=== PATIENT | male | born 2000 | race Caucasian/White ===

== ENCOUNTER 2022-07-28 16:42 | Emergency (ER) | payer OTHER ==
[2022-07-28 16:51] VITALS: BP 111/71; PULSE 76; RESP 16; TEMP 97.9
[2022-07-28] MEDS ORDERED: diphenhydrAMINE 50 MG CAP PO STA (17:13)
--- NOTE | 2022-07-28 17:14 | ED ---
Skin/Abscess/FB HPI - General Chief complaint: Skin/Abscess/Foreign Body Stated complaint: spots on body Time Seen by Provider: 07/28/22 16:53 Source: patient, RN notes reviewed Mode of arrival: ambulatory Limitations: no limitations - History of Present Illness Initial comments: Rzdzjvhd-[id number]-hif male presents emergency Department chief complaint of a rash. Patient states that he noticed on his torso primary today. Patient states he just feels off. He states it is slightly itchy. Denies any new products denies any difficulty swallowing or breathing. Patient is torso in groin region. Patient states that he has no other associated complaints - Related Data Allergies Allergy/AdvReac Type Severity Reaction Status Date / Time No Known Allergies Allergy Verified 07/28/22 16:51 Review of Systems ROS Statement: Those systems with pertinent positive or pertinent negative responses have been documented in the HPI. ROS Other: All systems not noted in ROS Statement are negative. Past Medical History Past Medical History: No Reported History History of Any Multi-Drug Resistant Organisms: None Reported Past Surgical History: No Surgical Hx Reported Past Psychological History: No Psychological Hx Reported Smoking Status: Never smoker Past Alcohol Use History: Occasional Past Drug Use History: None Reported General Exam Limitations: no limitations General appearance: alert, in no apparent distress Head exam: Present: atraumatic, normocephalic, normal inspection Eye exam: Present: normal appearance, PERRL, EOMI. Absent: scleral icterus, conjunctival injection, periorbital swelling ENT exam: Present: normal exam, normal oropharynx, mucous membranes moist Neck exam: Present: normal inspection, full ROM. Absent: tenderness, meningismus, lymphadenopathy Respiratory exam: Present: normal lung sounds bilaterally. Absent: respiratory distress, wheezes, rales, rhonchi, stridor Cardiovascular Exam: Present: regular rate, normal rhythm, normal heart sounds. Absent: systolic murmur, diastolic murmur, rubs, gallop, clicks Neurological exam: Present: alert, oriented X3 Skin exam: Present: warm, dry, intact, normal color, rash (Various in size slightly raised salmon-colored she can discolor rash or so.) Course Vital Signs 07/28/22 16:47 Temperature 97.9 F Pulse Rate 76 Respiratory 16 Rate Blood Pressure 111/71 O2 Sat by Pulse 99 Oximetry Medical Decision Making - Medical Decision Making Was pt. sent in by a medical professional or institution (ZAK Faust, ANIMAL ASSISTED THERAPIST, urgent care, hospital, or fci...) When possible be specific @ -No Did you speak to anyone other than the patient for history (EMS, parent, family, police, friend...)? What history was obtained from this source @ -No Did you review nursing and triage notes (agree or disagree)? Why? @ -I reviewed and agree with nursing and triage notes Were old charts reviewed (outside hosp., previous admission, EMS record, old EKG, old radiological studies, urgent care reports/EKG's, fci records)? Report findings @ -No old charts were reviewed Differential Diagnosis (chest pain, altered mental status, abdominal pain women, abdominal pain men, vaginal bleeding, weakness, fever, dyspnea, syncope, headache, dizziness, GI bleed, back pain, seizure, CVA, palpatations, mental health)? @ -Urticaria, pityriasis, tinea versicolor, cellulitis, contact dermatitis, this was not conclusive EKG interpreted by me (3pts min.). @ -None X-rays interpreted by me (1pt min.). @ -None done CT interpreted by me (1pt min.). @ -None done U/S interpreted by me (1pt. min.). @ -None done What testing was considered but not performed or refused? (CT, X-rays, U/S, labs)? Why? @ -None What meds were considered but not given or refused? Why? @ -None Did you discuss the management of the patient with other professionals (professionals i.e. ZAK Faust, ANIMAL ASSISTED THERAPIST, lab, RT, psych nurse, social service coordinator, softball player, teacher, investment officer, case maker)? Give summary @ -No Was smoking cessation discussed for >3mins.? @ -No Was critical care preformed (if so, how long)? @ -No Were there social determinants of health that impacted care today? How? (Homelessness, low income, unemployed, alcoholism, drug addiction, transportation, low edu. Level, literacy, decrease access to med. care, [facility], rehab)? @ -No Was there de-escalation of care discussed even if they declined (Discuss DNR or withdrawal of care, Hospice)? DNR status @ -No What co-morbidities impacted this encounter? (DM, HTN, Smoking, COPD, CAD, Cancer, CVA, ARF, Chemo, Hep., AIDS, mental health diagnosis, sleep apnea, morbid obesity)? @ -None Was patient admitted / discharged? Hospital course, mention meds given and route, prescriptions, significant lab abnormalities, going to OR and other pertinent info. @ -Discharged home with advice to take antihistamines and have close follow-up. Undiagnosed new problem with uncertain prognosis? @ -No Drug Therapy requiring intensive monitoring for toxicity (Heparin, Nitro, Insulin, Cardizem)? @ -No Were any procedures done? @ -No Diagnosis/symptom? @ -Pityriasis rosea Acute, or Chronic, or Acute on Chronic? @ -Acute Uncomplicated (without systemic symptoms) or Complicated (systemic symptoms)? @ -unComplicated Side effects of treatment? @ -No Exacerbation, Progression, or Severe Exacerbation? @ -No Poses a threat to life or bodily function? How? (Chest pain, USA, MD, pneumonia, PE, COPD, DKA, ARF, appy, cholecystitis, CVA, Diverticulitis, Homicidal, Suicidal, threat to staff... and all critical care pts) @ -No Disposition Clinical Impression: Pityriasis rosea Disposition: HOME SELF-CARE Condition: Stable Instructions (If sedation given, give patient instructions): Aguilaryrjose elias bermudez (ED) Additional Instructions: Please return to the Emergency Department if symptoms worsen or any other concerns. Is patient prescribed a controlled substance at d/c from ED?: No Referrals: Odessa Martinez MD [Primary Care Provider] - 1-2 days Time of Disposition: 17:13
== END 2022-07-28 17:43 | disposition home or self-care (01) ==
LOC: EC 16:42
DX: L42 Pityriasis rosea (principal)
CPT/HCPCS: 99282

== ENCOUNTER 2022-11-08 22:19 | Emergency (ER) | payer OTHER ==
--- NOTE | 2022-11-08 23:07 | ED ---
Skin/Abscess/FB HPI - General Chief complaint: Skin/Abscess/Foreign Body Stated complaint: RASH Time Seen by Provider: 11/08/22 22:55 Source: patient, RN notes reviewed Mode of arrival: ambulatory Limitations: no limitations - History of Present Illness Initial comments: This is a 22-year-old male who presents to the emergency department for a rash. States that it is on the right side of his body and going up from the torso to the upper arm. This started back in July and he was evaluated here for the same thing, but states that the rash seems to be spreading. This started out as red and has started to turn brown. This is not significantly itchy, states that it is just uncomfortable. He has not been taking anything to treat his symptoms and has not followed up with any specialists at this point. Denies any fevers, chills, sore throat, cough, dyspnea, chest pain, palpitations, abdominal pain, nausea, vomiting, diarrhea, back pain, or headaches. MD complaint: rash - Related Data Allergies Allergy/AdvReac Type Severity Reaction Status Date / Time No Known Allergies Allergy Verified 07/28/22 16:51 Review of Systems ROS Statement: Those systems with pertinent positive or pertinent negative responses have been documented in the HPI. ROS Other: All systems not noted in ROS Statement are negative. Past Medical History Past Medical History: No Reported History History of Any Multi-Drug Resistant Organisms: None Reported Past Surgical History: No Surgical Hx Reported Past Psychological History: No Psychological Hx Reported Smoking Status: Never smoker Past Alcohol Use History: Occasional Past Drug Use History: None Reported General Exam Limitations: no limitations General appearance: alert, in no apparent distress Course Vital Signs 11/08/22 11/08/22 22:25 23:34 Temperature 97.9 F 98.0 F Pulse Rate 77 72 Respiratory 18 16 Rate Blood Pressure 108/65 112/68 O2 Sat by Pulse 97 98 Oximetry Medical Decision Making - Medical Decision Making This is a 22-year-old male who presents to the emergency department for a rash. Was pt. sent in by a medical professional or institution? @ -No Did you speak to anyone other than the patient for history? @ -No Did you review nursing and triage notes? @ -Yes, and I agree, it is accurate with regards to the patient's symptoms. Were old charts reviewed? @ -No Differential Diagnosis? @ -Differential Rash: Roseola, measles, Lyme disease, erythema multiforme, cellulitis, toxic shock syndrome, Pa Cj syndrome, Kawasaki disease, ivet mountain spotted fever, contact dermatitis, allergic dermatitis, measles, mumps, rubella, varicella, meningococcal disease, drug reaction, coxsackievirus, This is not meant to be an all-inclusive list. EKG interpreted by me (3pts min.)? @ -Not obtained X-rays interpreted by me (1pt min.)? @ -Not obtained CT interpreted by me (1pt min.)? @ -Not obtained U/S interpreted by me (1pt. min.)? @ -Not obtained What testing was considered but not performed? (CT, X-rays, U/S, labs)? Why? @ -None What meds were considered but not given? Why? @ -None Did you discuss the management of the patient with other professionals? @ -No Did you reconcile home meds? @ -No Was smoking cessation discussed for >3mins.? @ -No Was critical care preformed (if so, how long)? @ -No Were there social determinants of health that impacted care today? How? (Homelessness, low income, unemployed, alcoholism, drug addiction, transporta tion, low edu. Level, literacy, decrease access to med. care, [facility], rehab)? @ -No Was there de-escalation of care discussed even if they declined? (Discuss DNR or withdrawal of care, Hospice)? @ -No What co-morbidities impacted this encounter? (DM, HTN, Smoking, COPD, CAD, Cancer, CVA, Hep., AIDS, mental health diagnosis, sleep apnea, morbid obesity)? @ -None Was patient admitted / discharged? @ -Discharged. Physical examination is suggestive of pityriasis rosea, which is what the patient was diagnosed with back in July of this year. Advised that treatment for this is largely symptomatic. If this starts to become itchy, advised that he can use [id number] antihistamines or hydrocortisone cream. However, if this is not particularly bothersome, there is nothing we need to do for this at this time. Information for dermatology follow-up provided. He is advised to contact them for a follow-up appointment and reevaluation of ongoing symptoms, especially with how long this rash has been present. Undiagnosed new problem with uncertain prognosis? @ -None Drug Therapy requiring intensive monitoring for toxicity (Heparin, Nitro, Insulin, Cardizem)? @ -None Were any procedures done? 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 @ -Chronic Uncomplicated (without systemic symptoms) or Complicated (systemic symptoms)? @ -Uncomplicated Side effects of treatment? @ -None Exacerbation, Progression, or Severe Exacerbation] @ -Progression Poses a threat to life or bodily function? @ -No Return precautions reviewed in depth, the patient is instructed to return to the emergency department with any new, worsening, or concerning symptoms. Patient verbalized understanding. This case was discussed in detail with the attending ED physician, Dr. Mg. Presentation, findings, and treatment plan discussed in detail as well. Disposition Clinical Impression: Pityriasis rosea Disposition: HOME SELF-CARE Instructions (If sedation given, give patient instructions): Pityriasis rosea (ED) Additional Instructions: Return to the emergency department with any new, worsening, or concerning symptoms. You can take an [id number] antihistamine such as Benadryl if this starts to get itchy. Contact dermatology as listed below for further evaluation of ongoing symptoms. Is patient prescribed a controlled substance at d/c from ED?: No Referrals: Odessa Martinez MD [Primary Care Provider] - 1-2 days Staci Willett MD [STAFF PHYSICIAN] - 1-2 days Abhijit Ortiz MD [REFERRING] - 1-2 days
[2022-11-08 23:35] VITALS: BP 112/68; PULSE 72; RESP 16; TEMP 98
== END 2022-11-08 23:34 | disposition home or self-care (01) ==
LOC: EC 22:19
DX: L42 Pityriasis rosea (principal)
CPT/HCPCS: 99282